=== PATIENT | male | born 1980 ===

== ENCOUNTER → 2021-02-18 | Outpatient (CLI) | payer OTHER | END | disposition home or self-care (01) | LOC: EDBD → PPH VACUNA | DX: Z23 Encounter for immunization (principal) ==

== ENCOUNTER 2021-03-11 08:00 | Outpatient (CLI) | payer OTHER | END 2021-03-11 08:30 | disposition home or self-care (01) | LOC: EDBD 08:00 → PPH VACUNA 08:00 | DX: Z23 Encounter for immunization (principal) ==